=== PATIENT | female | born 1930 | race African-American/Black ===

== ENCOUNTER 2016-06-19 20:37 | Emergency (ER) | payer OTHER ==
[2016-06-19 19:49] LABS: BASOPHIL% 0.4 % (0-2.5); EOSINOPHIL# 0.1 X10e3 (0-0.7); EOSINOPHIL% 2.4 % (0.0-7.0); HEMATOCRIT 39.9 % (35.0-45.0); HEMOGLOBIN 12.8 gm/dL (12.0-16.0); LYMPHOCYTE# 1.5 X10e3 (1.0-3.5); LYMPHOCYTE% 30.7 % (17.0-45.0); MEAN CELL VOLUME 96.9 FL (83-96); MEAN PLATELET VOLUME 8.7 FL (6.5-11.5); MONOCYTE# 0.5 X10e3 (0-1.0); MONOCYTE% 10.9 % (3.0-12.0); NEUTROPHIL# 2.8 X10e3 (1.5-7.1); NEUTROPHIL% 55.6 % (40-75); PLATELET COUNT 133 X10e3 (140-420); RED BLOOD COUNT 4.12 X10e (3.90-5.30); RED CELL DISTRIBUTION WIDTH 13.6 % (11.0-15.5)
[2016-06-19 19:56] LABS: DIFF IND NO
[2016-06-19 20:02] LABS: PROTHROMBIN TIME (PATIENT) 10.6 SECONDS (9.6-11.5)
[2016-06-19 20:06] LABS: CALCIUM SERUM 9.7 mg/dL (8.4-10.2); CREATININE SERUM 1.6 mg/dL (0.6-1.4); POTASSIUM 4.7 mmol/L (3.5-5.1)
[~2016-06-19 20:37] MED LIST: ANEXSIA 5/325 M1 TA1 PO; ANTIVERT PO; ANTIVERT12.5 MG PO; ASPIRIN81 MG PO; ATORVASTATIN CA10 MG PO; B-COMPLEX W/1 TAB.SA; BENAZEPRIL HCL10 MG PO; CARAFATE1 G PO; CARAFATE1 GM PO; CARVEDILOL6.25 MG PO; CLOPIDOGREL75 MG PO; CLOTRIMAZOLE/BE15 GM; COREG6.25 MG PO; COUMADIN PO; COUMADIN1 MG PO; COUMADIN3 MG; COUMADIN3 MG PO; DURAGESIC25 MCG EXT; DURAGESIC75 MCG EXT; FERRO-TIME325 MG PO; HYDROCODON-ACE1 EA11 PO; HYDROCODON-ACE1 EAC4 PO; HYDROCODON-ACE1 EAC7 PO; IMDUR-ER30 M2 PO; ISOSORBIDE DINI30 MG PO; JANTOVEN2 MG PO; LASIX20 MG PO; LEVAQUIN PO; LEVOTHROID50 MCG PO; LEVOTHYROXINE100 MC1 PO; LEVOTHYROXINE50 MC1 PO; LEVOTHYROXINE50 MCG PO; LEVOXYL50 MCG PO; LIDOCA; LIDODERM30 EA TOP; LIPITOR80 MG PO; LORTAB 10/500 T1 TAB PO; MEDI-MECLIZINE25 M1 PO; METHOCARBAMOL500 MG PO; MEVACOR PO; MEVACOR40 MG; MIRALAX119 GM PO; MIRALAX17 GM PO; MIRALAX255 GM PO; MS CONTIN PO; MS CONTIN15 M1 PO; MS CONTIN15 MG PO; MS CONTIN30 MG; MS CONTIN30 MG PO; MSIR15 M1 PO; MULTIGEN CAPLET1 TAB PO; MULTIVITAM PO; NEURONTIN PO; NITRO-DUR 0.1M0.1 MG SL; NITROGLYCERIN0.4 MG; NITROGLYCERIN0.4 MG SL; NITROQUICK0.4 MG SL; NORCO1 TAB 10/3 PO; NORVASC PO; ONDANSETRON ODT4 MG PO; OXYCODON HCL-1 UDTAB PO; OXYCONTIN20 MG PO; PANTOPRAZOLE SO40 MG PO; PHENERGAN25 MG PO; POLYETHYLENE G527 GM; POLYETHYLENE G527 GM PO; POLYETHYLENE MC; POTASSIUM GLUC500 GM; POTASSIUM GLUCONATE; PRILOSEC PO; PROLIA60 MG/1 ML; PROLIA60 MG/1 ML IJ; PROLIA60 MG/1 ML SQ; PROLINE INJ; PROTONIX PO; RANEXA500 MG PO; RANITIDINE HCL150 M1 PO; RECLAST 55 MG/100 M IV; REQUIP0.25 MG DOB; ROBAXIN500 MG PO; SYNTHROID PO; TRAVEL MOTION S25 MG PO; ULTRACET TABLET1 TAB PO; VERTIN-3225 MG PO; VIT B-12 PO; VITAMIN B125000 MCG PO; VITAMIN D 4001 UDTAB PO; VITAMIN D-32000 UNI1 PO; VITAMIN D2000 UNI1 PO; VITAMIN D2000 UNIT PO; VITAMIN D400 UNI1; WARFARIN SODIUM1 MG PO; WARFARIN SODIUM10 MG PO; WARFARIN SODIUM2 M1 PO; WARFARIN SODIUM2 MG; WARFARIN SODIUM2 MG PO; ZOFRAN PO; [UNRECOGNIZED DRUG - OTHER]; [UNRECOGNIZED DRUG - OTHER] PO
== END 2016-06-19 22:51 | disposition home or self-care (01) ==
LOC: CED 20:37
PROVIDERS: Emergency Medicine
DX: I82.402 Acute embolism and thrombosis of unspecified deep veins of left lower extremity (principal); I10 Essential (primary) hypertension; Z98.890 Other specified postprocedural states; Z88.0 Allergy status to penicillin; Z88.2 Allergy status to sulfonamides; Z88.8 Allergy status to other drugs, medicaments and biological substances; Z88.1 Allergy status to other antibiotic agents; Z79.899 Other long term (current) drug therapy
CPT/HCPCS: 36415; 80048; 85025; 85610; 99283

== ENCOUNTER → 2016-09-26 | Outpatient (CLI) | payer OTHER | END | disposition home or self-care (01) | LOC: CSSDAY 11:30 | DX: M81.0 Age-related osteoporosis without current pathological fracture (principal) | CPT/HCPCS: 96372; J0897 ==